=== PATIENT | male | born 1950 | race Caucasian/White ===

== ENCOUNTER → 2019-07-04 | Outpatient (CLI) | payer MEDICARE | END | disposition home or self-care (01) | LOC: RAH 09:13 | PROVIDERS: ATTEND Internal Medicine Gastroenterology | DX: N28.1 Cyst of kidney, acquired (principal); B19.20 Unspecified viral hepatitis C without hepatic coma | CPT/HCPCS: 76700 ==

== ENCOUNTER 2021-10-27 00:46 | Inpatient (IN) | payer OTHER, MEDICARE ==
[~2021-10-27] VITALS: Ht 165.1 cm; Wt 45.6 kg
[2021-10-27] MEDS ORDERED: METO-391 PO (01:04)
[2021-10-27] MEDS ORDERED: AMLO-258 PO (01:04)
[2021-10-27 01:27] LABS: ABG BASE EXCESS -13.2 mmol/L (-2.0-3.0); ABG HCO3 11.7 mmol/L (21.0-28.0); ABG OXYGEN SATURATION 97.2 % (95.0-99.0); ABG PCO2 26 mmHg (35-48)
[2021-10-27 01:29] LABS: BASOPHILS % (AUTO) 0.5 % (0.0-5.0); EOSINOPHILS % (AUTO) 1.9 % (0.0-8.0); HEMATOCRIT 24.9 % (42-54); LYMPHOCYTES % (AUTO) 35.8 % (21.0-51.0); MEAN CORPUSCULAR HEMOGLOBIN 30.7 pg (27.0-33.0); MEAN CORPUSCULAR HGB CONC 31.7 g/dL (32.0-36.0); MEAN CORPUSCULAR VOLUME 96.9 fL (79-99); MONOCYTES % (AUTO) 7.7 % (3.0-13.0); NEUTROPHILS % (AUTO) 53.9 % (40.0-77.0); PLATELET COUNT (AUTO) 163 K/uL (130-400); RED BLOOD CELL COUNT(AUTO) 2.57 MIL/uL (4.50-6.20); RED CELL DISTRIBUTION WIDTH 13.6 % (11.0-15.5); WHITE BLOOD COUNT (AUTO) 5.9 K/uL (4.8-10.8)
[2021-10-27 01:43] LABS: ALBUMIN 3.6 g/dL (3.5-5.0); BILIRUBIN,TOTAL 0.2 mg/dL (0.2-1.0); CREATININE 6.4 mg/dL (0.5-1.5); TOTAL PROTEIN, SERUM 8.2 g/dL (6.0-8.3)
[2021-10-27 01:54] LABS: POTASSIUM 6.2 mmol/L (3.5-5.1)
[2021-10-27] MEDS ORDERED: KAYEXALATE 15GM/60ML PO ONE (03:00)
[2021-10-27] MEDS ORDERED: DEXTROSE 50%-WATER 25 GM/50 ML VIAL IV ONE (03:00)
[2021-10-27] MEDS ORDERED: INSULIN HUMULIN R 100 UNIT/ML 3ML IV ONE (03:00)
[2021-10-27] MEDS ORDERED: CALCIUM GLUC 1GM/10ML VIAL IVPB ONE (03:00)
[2021-10-27] MEDS ORDERED: 0.9%NACL 1000ML 1,000 ML IV ONE (03:00)
[2021-10-27] MEDS ORDERED: KAYEXALATE 15GM/60ML ONE (03:02)
[2021-10-27] MEDS ORDERED: DEXTROSE 50%-WATER 50 ML DISP.SYRIN IV ONE (03:03)
[2021-10-27] MEDS ORDERED: CALCIUM GLUC 1GM/10ML VIAL ONE (03:03)
[2021-10-27] MEDS ORDERED: INSULIN HUMULIN R 100 UNIT/ML 3ML ONE (03:04)
[2021-10-27] MEDS ORDERED: CALCIUM GLUC 1GM 1 GM in 0.9%NACL 100ML 100 ML IV ONE (03:30)
[2021-10-27] MEDS ORDERED: ALBUTEROL 0.083% 2.5 MG/3 ML INH IH ONE (03:30)
[2021-10-27] MEDS ORDERED: NITROGLYCERIN 0.4 MG SL TAB SL PRN (03:30)
[2021-10-27] MEDS ORDERED: HYDROCODONE/ACETAMINOPHEN 5/325 MG TAB PO PRN (03:30)
[2021-10-27] MEDS ORDERED: SODIUM BICARB 8.4% 50ML SYRINGE IVP STA (03:53)
[2021-10-27 03:56] LABS: APPEARANCE,URINE Clear (CLEAR); BILIRUBIN,URINE Negative (NEGATIVE); COLOR,URINE Yellow (YELLOW); GLUCOSE, URINE (UA) Negative (NEGATIVE); KETONES,URINE Negative (NEGATIVE); LEUKOCYTE ESTERASE ,URINE Negative (NEGATIVE); NITRATE,URINE Negative (NEGATIVE); OCCULT BLOOD,URINE Trace (NEGATIVE); PH,URINE 5.5 (5.0-8.0); PROTEIN,URINE 300 mg/dL (NEGATIVE); UROBILINOGEN,URINE 0.2 mg/dL (0.2-1.0)
[2021-10-27] MEDS ORDERED: DEXTROSE 50%-WATER 50 ML DISP.SYRIN IV PRN (04:00)
[2021-10-27] MEDS ORDERED: GLUCAGON 1MG KIT 1 MG ML IM PRN (04:00)
[2021-10-27 04:04] LABS: AMPHET/METH SCREEN,URINE NEGATIVE (NEGATIVE); BARBITURATE SCREEN, URINE NEGATIVE (NEGATIVE); BENZODIAZEPINES SCREEN,URINE NEGATIVE (NEGATIVE); CANNABINOID SCREEN,URINE NEGATIVE (NEGATIVE); COCAINE SCREEN,URINE POSITIVE (NEGATIVE); OPIATE SCREEN,URINE NEGATIVE (NEGATIVE); PHENCYCLIDINE SCREEN,URINE NEGATIVE (NEGATIVE)
[2021-10-27 04:11] LABS: BACTERIA,URINE Few /HPF (None Seen); RBC,URINE 0-1 /HPF (0-1); WBC,URINE 0-1 /HPF (0-1)
[2021-10-27] MEDS: SOLU-MEDROL 40MG VIAL IVP SCH ×2 (05:33→10:07)
[2021-10-27] MEDS ORDERED: SODIUM BICARB 50MEQ 50ML VIAL 50 ML ONE (05:34)
[2021-10-27] MEDS: INSULIN HUMULIN R 100 UNIT/ML 3ML SQ SCH ×4 (07:30→21:00)
[2021-10-27] MEDS ORDERED: SODIUM BICARB 50MEQ 50ML VIAL IVPB SCH (09:00)
[2021-10-27] MEDS ORDERED: METOPROLOL SUCCINATE 50 MG TAB.SR.24H PO SCH (09:00)
[2021-10-27] MEDS ORDERED: ENOXAPARIN SODIUM 30 MG/0.3 ML SQ SCH (09:00)
[2021-10-27] MEDS: FAMOTIDINE 20MG VIAL IV SCH (10:00)
[2021-10-27 10:46] LABS: HEMATOCRIT 25.9 % (42-54); MEAN CORPUSCULAR HEMOGLOBIN 30.2 pg (27.0-33.0); MEAN CORPUSCULAR VOLUME 94.2 fL (79-99); RED BLOOD CELL COUNT(AUTO) 2.75 MIL/uL (4.50-6.20); RED CELL DISTRIBUTION WIDTH 13.5 % (11.0-15.5); WHITE BLOOD COUNT (AUTO) 5.9 K/uL (4.8-10.8)
[2021-10-27 10:58] LABS: HEMOGLOBIN A1C 5.1 % (4.0-6.0)
[2021-10-27 11:18] LABS: ALBUMIN 3.4 g/dL (3.5-5.0); BILIRUBIN,TOTAL 0.2 mg/dL (0.2-1.0); CREATININE 6.3 mg/dL (0.5-1.5); POTASSIUM 5.2 mmol/L (3.5-5.1); THYROID STIMULATING HORMONE 4.06 uIU/mL (0.36-3.74); TOTAL PROTEIN, SERUM 7.9 g/dL (6.0-8.3)
[2021-10-27 13:22] LABS: APPEARANCE,URINE CLEAR (CLEAR); BILIRUBIN,URINE NEGATIVE (NEGATIVE); COLOR,URINE YELLOW (YELLOW); GLUCOSE, URINE (UA) NEGATIVE (NEGATIVE); KETONES,URINE NEGATIVE (NEGATIVE); LEUKOCYTE ESTERASE ,URINE NEGATIVE (NEGATIVE); NITRATE,URINE NEGATIVE (NEGATIVE); OCCULT BLOOD,URINE TRACE-LYSED (NEGATIVE); PH,URINE 5.5 (5.0-8.0); PROTEIN,URINE >=300 mg/dL (NEGATIVE); UROBILINOGEN,URINE 0.2 mg/dL (0.2-1.0)
[2021-10-27 13:30] LABS: CHLORIDE,URINE RANDOM 58 mmol/L (110-250); POTASSIUM,URINE RANDOM 57 mmol/L (25-125); SODIUM,URINE RANDOM 23 mmol/l (40-220)
[2021-10-27 13:35] LABS: BACTERIA,URINE Rare /HPF (None Seen); RBC,URINE 0-1 /HPF (0-1); SQUAMOUS EPITHELIAL CELL,UR Rare /HPF (0-2); WBC,URINE 0-1 /HPF (0-1)
[2021-10-27] MEDS: IPRATROPIUM/ALBUTEROL SULFATE 3 ML SOLUTION IH SCH ×3 (13:50→23:28)
[2021-10-27 14:36] VITALS: BP 169/87
[2021-10-27] MEDS ORDERED: AMLODIPINE-BENAZEPRIL 5-10 MG PO SCH (15:00)
[2021-10-27] MEDS: CEFTRIAXONE 1G VIAL IVP SCH (15:14)
[2021-10-27] MEDS: 0.9% NACL 250ML IVPB SCH (15:15)
[2021-10-27] MEDS: AZITHROMYCIN 500MG+NS 250ML IV SCH (15:15)
[2021-10-27 16:00] VITALS: BP 153/88
[2021-10-27 16:59] LABS: CREATININE 6.4 mg/dL (0.5-1.5); POTASSIUM 4.7 mmol/L (3.5-5.1)
[2021-10-27 20:00] VITALS: BP 170/80
[2021-10-27 21:00] VITALS: BP 153/78
[2021-10-27] MEDS: HYDRALAZINE HCL 10 MG TABLET PO PRN (21:14)
[2021-10-27] MEDS: PHARMACY COMMUNICATION MISC SCH (22:00)
[2021-10-27] MEDS ORDERED: KAYEXALATE 15GM/60ML PO PRN (22:00)
[2021-10-28] VITALS (10 sets, daily range): BP systolic 80–164; BP diastolic 28–77
[2021-10-28] MEDS: PHARMACY COMMUNICATION MISC SCH (02:00)
[2021-10-28 04:00] LABS: MEAN CORPUSCULAR HEMOGLOBIN 29.4 pg (27.0-33.0); MEAN CORPUSCULAR HGB CONC 31.8 g/dL (32.0-36.0); MEAN CORPUSCULAR VOLUME 92.4 fL (79-99); RED BLOOD CELL COUNT(AUTO) 2.11 MIL/uL (4.50-6.20); RED CELL DISTRIBUTION WIDTH 13.3 % (11.0-15.5); WHITE BLOOD COUNT (AUTO) 7.5 K/uL (4.8-10.8)
[2021-10-28 04:19] LABS: HEMATOCRIT 19.5 % (42-54)
[2021-10-28 04:37] LABS: CREATININE 6.6 mg/dL (0.5-1.5); POTASSIUM 4.5 mmol/L (3.5-5.1)
[2021-10-28] MEDS: IPRATROPIUM/ALBUTEROL SULFATE 3 ML SOLUTION IH SCH ×4 (06:21→23:07)
[2021-10-28] MEDS: INSULIN HUMULIN R 100 UNIT/ML 3ML SQ SCH ×2 (07:04→21:00)
[2021-10-28 08:14] LABS: HEMATOCRIT 19.5 % (42-54)
[2021-10-28] MEDS ORDERED: METOPROLOL SUCCINATE 50 MG TAB.SR.24H PO SCH (09:00)
[2021-10-28 09:13] LABS: INR 1.05 (0.85-1.15); PROTHROMBIN TIME 11.4 SEC (9.6-11.6)
[2021-10-28 09:14] LABS: PARTIAL THROMBOPLASTIN TIME 28.7 SEC (26.3-35.5)
[2021-10-28] MEDS: AMLODIPINE 5 MG TAB PO SCH (09:46)
[2021-10-28] MEDS: FAMOTIDINE 20MG VIAL IV SCH (09:46)
[2021-10-28] MEDS: Vitamin B Complex/Vit C/Folic Acid PO SCH (09:46)
[2021-10-28 09:56] LABS: % IRON SATURATION 40.3 % (30-44)
[2021-10-28] MEDS ORDERED: LINEZOLID 600 MG/ISO-OSM 300 ML IV SCH (13:00)
[2021-10-28] MEDS ORDERED: RENAL DOSE IV PRN (13:00)
[2021-10-28] MEDS ORDERED: SODIUM BICARBONATE 650 MG TAB PO SCH (14:00)
[2021-10-28] MEDS: SODIUM BICARBONATE 650 MG TAB PO SCH (21:09)
[2021-10-28] MEDS: CEFTRIAXONE 1G VIAL IVP SCH (21:09)
[2021-10-28] MEDS: 0.9% NACL 250ML IVPB SCH (21:56)
[2021-10-28] MEDS: AZITHROMYCIN 500MG+NS 250ML IV SCH (21:56)
[2021-10-28] MEDS: LINEZOLID 600 MG/ISO-OSM 300 ML IV SCH (22:01)
[2021-10-29] VITALS (7 sets, daily range): BP systolic 127–178; BP diastolic 63–86
[2021-10-29] MEDS ORDERED: FUROSEMIDE 40MG VIAL IV ONE (04:30)
[2021-10-29] MEDS: IPRATROPIUM/ALBUTEROL SULFATE 3 ML SOLUTION IH SCH ×3 (04:48→18:00)
[2021-10-29] MEDS: LEVOTHYROXINE 50 MCG TABLET PO SCH (05:35)
[2021-10-29] MEDS: INSULIN HUMULIN R 100 UNIT/ML 3ML SQ SCH ×4 (06:12→21:00)
[2021-10-29] MEDS: SODIUM BICARBONATE 650 MG TAB PO SCH ×2 (09:00→21:12)
[2021-10-29] MEDS: LINEZOLID 600 MG/ISO-OSM 300 ML IV SCH ×2 (09:00→22:02)
[2021-10-29] MEDS: Vitamin B Complex/Vit C/Folic Acid PO SCH (11:28)
[2021-10-29] MEDS: FAMOTIDINE 20MG VIAL IV SCH (11:28)
[2021-10-29] MEDS: AMLODIPINE 5 MG TAB PO SCH (11:29)
[2021-10-29 15:09] LABS: BASOPHILS % (AUTO) 0.3 % (0.0-5.0); EOSINOPHILS % (AUTO) 0.2 % (0.0-8.0); HEMATOCRIT 26.2 % (42-54); LYMPHOCYTES % (AUTO) 10.6 % (21.0-51.0); MEAN CORPUSCULAR HEMOGLOBIN 29.7 pg (27.0-33.0); MEAN CORPUSCULAR HGB CONC 32.1 g/dL (32.0-36.0); MEAN CORPUSCULAR VOLUME 92.6 fL (79-99); NEUTROPHILS % (AUTO) 79.2 % (40.0-77.0); PLATELET COUNT (AUTO) 135 K/uL (130-400); RED BLOOD CELL COUNT(AUTO) 2.83 MIL/uL (4.50-6.20); RED CELL DISTRIBUTION WIDTH 15.2 % (11.0-15.5); WHITE BLOOD COUNT (AUTO) 10.3 K/uL (4.8-10.8)
[2021-10-29 15:24] LABS: CREATININE 6.8 mg/dL (0.5-1.5); POTASSIUM 4.2 mmol/L (3.5-5.1)
[2021-10-29] MEDS: AZITHROMYCIN 500MG+NS 250ML IV SCH (21:11)
[2021-10-29] MEDS: CEFTRIAXONE 1G VIAL IVP SCH (21:11)
[2021-10-29] MEDS: 0.9% NACL 250ML IVPB SCH (21:12)
[2021-10-30] VITALS (7 sets, daily range): BP systolic 136–178; BP diastolic 68–95
[2021-10-30] MEDS: IPRATROPIUM/ALBUTEROL SULFATE 3 ML SOLUTION IH SCH ×4 (00:44→18:00)
[2021-10-30] MEDS: HYDRALAZINE HCL 10 MG TABLET PO PRN ×2 (01:23→20:54)
[2021-10-30 04:03] LABS: HEMATOCRIT 23.9 % (42-54); MEAN CORPUSCULAR HEMOGLOBIN 30.7 pg (27.0-33.0); MEAN CORPUSCULAR HGB CONC 33.5 g/dL (32.0-36.0); MEAN CORPUSCULAR VOLUME 91.6 fL (79-99); RED BLOOD CELL COUNT(AUTO) 2.61 MIL/uL (4.50-6.20); RED CELL DISTRIBUTION WIDTH 14.8 % (11.0-15.5); WHITE BLOOD COUNT (AUTO) 10.5 K/uL (4.8-10.8)
[2021-10-30 04:18] LABS: ALBUMIN 2.7 g/dL (3.5-5.0); BILIRUBIN,TOTAL 0.2 mg/dL (0.2-1.0); CREATININE 6.5 mg/dL (0.5-1.5); MAGNESIUM 1.2 mg/dL (1.80-2.40); PHOSPHORUS 4.8 mg/dL (2.5-4.9); POTASSIUM 3.6 mmol/L (3.5-5.1); TOTAL PROTEIN, SERUM 6.6 g/dL (6.0-8.3)
[2021-10-30] MEDS: LEVOTHYROXINE 50 MCG TABLET PO SCH (05:55)
[2021-10-30] MEDS: INSULIN HUMULIN R 100 UNIT/ML 3ML SQ SCH ×4 (05:55→20:47)
[2021-10-30] MEDS: Vitamin B Complex/Vit C/Folic Acid PO SCH (09:52)
[2021-10-30] MEDS: AMLODIPINE 5 MG TAB PO SCH (09:52)
[2021-10-30] MEDS: SODIUM BICARBONATE 650 MG TAB PO SCH ×2 (09:52→20:47)
[2021-10-30] MEDS: LINEZOLID 600 MG/ISO-OSM 300 ML IV SCH (09:52)
[2021-10-30] MEDS: FAMOTIDINE 20MG VIAL IV SCH (09:53)
[2021-10-30] MEDS ORDERED: CEFUROXIME AXETIL 250 MG TABLET PO SCH (14:30)
[2021-10-30] MEDS: MAGNESIUM 2GM PREMIX 50ML 50 ML IV PRN (20:54)
[2021-10-30] MEDS: GUAIFENESIN-DM 200/20 MG 10 ML PO PRN (22:48)
[2021-10-30] MEDS: ACETAMINOPHEN 325 MG TAB PO PRN (22:49)
[2021-10-30] MEDS: ONDANSETRON 4MG INJ IV PRN (23:30)
[2021-10-30] MEDS: MAG/ALUM/SIMETH 30 ML UDCUP PO PRN (23:30)
[2021-10-31 04:00] VITALS: BP 172/91
[2021-10-31] MEDS: LEVOTHYROXINE 50 MCG TABLET PO SCH (05:10)
[2021-10-31] MEDS: HYDRALAZINE HCL 10 MG TABLET PO PRN (05:10)
[2021-10-31 05:24] LABS: HEMATOCRIT 24.2 % (42-54); MEAN CORPUSCULAR HEMOGLOBIN 30.5 pg (27.0-33.0); MEAN CORPUSCULAR HGB CONC 33.9 g/dL (32.0-36.0); RED BLOOD CELL COUNT(AUTO) 2.69 MIL/uL (4.50-6.20); RED CELL DISTRIBUTION WIDTH 14.2 % (11.0-15.5); WHITE BLOOD COUNT (AUTO) 8.8 K/uL (4.8-10.8)
[2021-10-31 05:40] LABS: CREATININE 6.6 mg/dL (0.5-1.5); MAGNESIUM 1.8 mg/dL (1.80-2.40); PHOSPHORUS 5.4 mg/dL (2.5-4.9); POTASSIUM 4.6 mmol/L (3.5-5.1)
[2021-10-31] MEDS: IPRATROPIUM/ALBUTEROL SULFATE 3 ML SOLUTION IH SCH ×3 (06:00→11:44)
[2021-10-31 06:12] VITALS: BP 189/87
[2021-10-31] MEDS: INSULIN HUMULIN R 100 UNIT/ML 3ML SQ SCH ×4 (06:24→21:00)
[2021-10-31] MEDS: MAGNESIUM 2GM PREMIX 50ML 50 ML IV PRN (06:25)
[2021-10-31 08:31] VITALS: BP 166/81
[2021-10-31] MEDS: Vitamin B Complex/Vit C/Folic Acid PO SCH (09:44)
[2021-10-31] MEDS: SODIUM BICARBONATE 650 MG TAB PO SCH ×2 (09:45→19:51)
[2021-10-31] MEDS: AMLODIPINE 5 MG TAB PO SCH (09:45)
[2021-10-31] MEDS: CEFUROXIME AXETIL 250 MG TABLET PO SCH ×2 (09:45→19:52)
[2021-10-31] MEDS: FAMOTIDINE 20MG VIAL IV SCH (09:45)
[2021-10-31 12:01] VITALS: BP 159/81
[2021-10-31 16:00] VITALS: BP 159/74
[2021-10-31] MEDS: ACETAMINOPHEN 325 MG TAB PO PRN (17:04)
[2021-10-31 20:00] VITALS: BP 160/75
[2021-11-01] VITALS: BP 170/89
[2021-11-01 04:00] VITALS: BP 122/83
[2021-11-01 04:06] LABS: HEMATOCRIT 25.8 % (42-54); MEAN CORPUSCULAR HEMOGLOBIN 29.6 pg (27.0-33.0); MEAN CORPUSCULAR HGB CONC 32.2 g/dL (32.0-36.0); MEAN CORPUSCULAR VOLUME 92.1 fL (79-99); RED BLOOD CELL COUNT(AUTO) 2.8 MIL/uL (4.50-6.20); RED CELL DISTRIBUTION WIDTH 13.5 % (11.0-15.5); WHITE BLOOD COUNT (AUTO) 6.6 K/uL (4.8-10.8)
[2021-11-01 04:10] LABS: POTASSIUM 4.4 mmol/L (3.5-5.1)
[2021-11-01] MEDS: LEVOTHYROXINE 50 MCG TABLET PO SCH (06:05)
[2021-11-01] MEDS: INSULIN HUMULIN R 100 UNIT/ML 3ML SQ SCH ×4 (06:06→21:00)
[2021-11-01 08:00] VITALS: BP 183/86
[2021-11-01] MEDS: AMLODIPINE 5 MG TAB PO SCH (08:17)
[2021-11-01] MEDS: HYDRALAZINE HCL 10 MG TABLET PO PRN (08:17)
[2021-11-01] MEDS: Vitamin B Complex/Vit C/Folic Acid PO SCH (08:17)
[2021-11-01] MEDS: CEFUROXIME AXETIL 250 MG TABLET PO SCH (08:17)
[2021-11-01] MEDS: FAMOTIDINE 20MG VIAL IV SCH (08:18)
[2021-11-01] MEDS: SODIUM BICARBONATE 650 MG TAB PO SCH ×2 (08:18→20:10)
[2021-11-01] MEDS: ACETAMINOPHEN 325 MG TAB PO PRN (08:20)
[2021-11-01 12:00] VITALS: BP 171/90
[2021-11-01 16:00] VITALS: BP 176/87
[2021-11-01] MEDS ORDERED: LEVOFLOXACIN 250 MG/D5W 50ML 50 ML IVPB SCH (16:00)
[2021-11-01] MEDS ORDERED: ZOSYN 3.375GM +NS 50ML IV SCH (17:00)
[2021-11-01] MEDS: IPRATROPIUM/ALBUTEROL SULFATE 3 ML SOLUTION IH PRN (19:45)
[2021-11-01 20:00] VITALS: BP 152/74
[2021-11-01] MEDS: LEVOFLOXACIN 250 MG/D5W 50ML 50 ML IVPB SCH (20:09)
[2021-11-01] MEDS: ZOSYN 3.375GM +NS 50ML IV SCH (20:09)
[2021-11-01] MEDS ORDERED: SODIUM CHLORIDE 3% FOR INHALATION 4 ML/AMP VIAL.NEB IH PRN (21:30)
[2021-11-02] VITALS (7 sets, daily range): BP systolic 153–170; BP diastolic 76–84
[2021-11-02 03:57] LABS: HEMATOCRIT 23.6 % (42-54); MEAN CORPUSCULAR HEMOGLOBIN 29.1 pg (27.0-33.0); MEAN CORPUSCULAR HGB CONC 31.4 g/dL (32.0-36.0); MEAN CORPUSCULAR VOLUME 92.9 fL (79-99); RED BLOOD CELL COUNT(AUTO) 2.54 MIL/uL (4.50-6.20); RED CELL DISTRIBUTION WIDTH 13.5 % (11.0-15.5); WHITE BLOOD COUNT (AUTO) 6.3 K/uL (4.8-10.8)
[2021-11-02 04:13] LABS: CREATININE 6.8 mg/dL (0.5-1.5); MAGNESIUM 2.5 mg/dL (1.80-2.40); POTASSIUM 4.4 mmol/L (3.5-5.1)
[2021-11-02] MEDS: LEVOTHYROXINE 50 MCG TABLET PO SCH (05:55)
[2021-11-02] MEDS: INSULIN HUMULIN R 100 UNIT/ML 3ML SQ SCH ×4 (05:56→21:00)
[2021-11-02] MEDS: HYDRALAZINE HCL 10 MG TABLET PO PRN (10:40)
[2021-11-02] MEDS: ZOSYN 3.375GM +NS 50ML IV SCH ×2 (10:40→21:10)
[2021-11-02] MEDS: FAMOTIDINE 20MG VIAL IV SCH (10:40)
[2021-11-02] MEDS: SODIUM BICARBONATE 650 MG TAB PO SCH ×2 (10:40→20:27)
[2021-11-02] MEDS: LACTULOSE 20 GM/30 ML UDCUP PO PRN (10:41)
[2021-11-02] MEDS: Vitamin B Complex/Vit C/Folic Acid PO SCH (10:41)
[2021-11-02] MEDS: MAG/ALUM/SIMETH 30 ML UDCUP PO PRN (10:41)
[2021-11-02] MEDS: AMLODIPINE 5 MG TAB PO SCH (10:41)
[2021-11-02] MEDS: EPOETIN ALFA-EPBX (ESRD) 10,000 UNIT/ML VIAL IV SCH (17:40)
[2021-11-02] MEDS ORDERED: ALTEPLASE 2MG VIAL 2 MG/VIAL VIAL IVCATH SCH (18:30)
[2021-11-02] MEDS: LEVOFLOXACIN 250 MG/D5W 50ML 50 ML IVPB SCH (20:27)
[2021-11-03] VITALS (7 sets, daily range): BP systolic 156–190; BP diastolic 79–93
[2021-11-03] MEDS: HYDRALAZINE HCL 10 MG TABLET PO PRN ×3 (01:38→22:16)
[2021-11-03] MEDS: IPRATROPIUM/ALBUTEROL SULFATE 3 ML SOLUTION IH PRN ×2 (01:45→22:29)
[2021-11-03] MEDS: ZOLPIDEM TARTRATE 5 MG TAB PO PRN ×2 (02:57→22:16)
[2021-11-03] MEDS: INSULIN HUMULIN R 100 UNIT/ML 3ML SQ SCH ×4 (06:02→20:11)
[2021-11-03] MEDS: LEVOTHYROXINE 50 MCG TABLET PO SCH (06:02)
[2021-11-03] MEDS: SODIUM BICARBONATE 650 MG TAB PO SCH ×2 (09:36→20:08)
[2021-11-03] MEDS: ZOSYN 3.375GM +NS 50ML IV SCH ×2 (09:36→20:09)
[2021-11-03] MEDS: FAMOTIDINE 20MG VIAL IV SCH (09:36)
[2021-11-03] MEDS: AMLODIPINE 5 MG TAB PO SCH (09:36)
[2021-11-03] MEDS: Vitamin B Complex/Vit C/Folic Acid PO SCH (09:37)
[2021-11-03] MEDS: EPOETIN ALFA-EPBX (ESRD) 10,000 UNIT/ML VIAL IV SCH (09:37)
[2021-11-03] MEDS: LEVOFLOXACIN 250 MG/D5W 50ML 50 ML IVPB SCH (20:08)
[2021-11-03] MEDS: NICOTINE 14 MG/ 24 HR PATCH TD SCH (20:24)
[2021-11-04] VITALS (22 sets, daily range): BP systolic 152–192; BP diastolic 74–101
[2021-11-04] MEDS: ALPRAZOLAM 0.25 MG TABLET PO PRN (01:05)
[2021-11-04 03:57] LABS: BASOPHILS % (AUTO) 0.5 % (0.0-5.0); EOSINOPHILS % (AUTO) 1.6 % (0.0-8.0); HEMATOCRIT 24.6 % (42-54); LYMPHOCYTES % (AUTO) 15.9 % (21.0-51.0); MEAN CORPUSCULAR HEMOGLOBIN 29.5 pg (27.0-33.0); MEAN CORPUSCULAR HGB CONC 32.5 g/dL (32.0-36.0); MEAN CORPUSCULAR VOLUME 90.8 fL (79-99); NEUTROPHILS % (AUTO) 65.9 % (40.0-77.0); PLATELET COUNT (AUTO) 129 K/uL (130-400); RED BLOOD CELL COUNT(AUTO) 2.71 MIL/uL (4.50-6.20); RED CELL DISTRIBUTION WIDTH 13.3 % (11.0-15.5); WHITE BLOOD COUNT (AUTO) 5.7 K/uL (4.8-10.8)
[2021-11-04 04:13] LABS: INR 1.07 (0.85-1.15); PROTHROMBIN TIME 11.6 SEC (9.6-11.6)
[2021-11-04 04:17] LABS: CREATININE 7.4 mg/dL (0.5-1.5); PHOSPHORUS 5.3 mg/dL (2.5-4.9); POTASSIUM 4.4 mmol/L (3.5-5.1)
[2021-11-04] MEDS: LEVOTHYROXINE 50 MCG TABLET PO SCH (05:32)
[2021-11-04] MEDS: INSULIN HUMULIN R 100 UNIT/ML 3ML SQ SCH ×4 (06:32→20:52)
[2021-11-04] MEDS: AMLODIPINE 5 MG TAB PO SCH (09:00)
[2021-11-04] MEDS ORDERED: NICOTINE 14 MG/ 24 HR PATCH TD SCH (09:00)
[2021-11-04] MEDS: Vitamin B Complex/Vit C/Folic Acid PO SCH (09:00)
[2021-11-04] MEDS: SODIUM BICARBONATE 650 MG TAB PO SCH ×2 (09:00→23:19)
[2021-11-04] MEDS: ZOSYN 3.375GM +NS 50ML IV SCH ×2 (09:28→23:19)
[2021-11-04] MEDS: EPOETIN ALFA-EPBX (ESRD) 10,000 UNIT/ML VIAL IV SCH (09:28)
[2021-11-04] MEDS: NICOTINE 14 MG/ 24 HR PATCH TD SCH (09:29)
[2021-11-04] MEDS: FAMOTIDINE 20MG VIAL IV SCH (09:29)
[2021-11-04] MEDS ORDERED: HEPARIN 1,000 UNIT VIAL ONE (12:13)
[2021-11-04] MEDS ORDERED: LIDOCAINE HCL 1% MDV 50ML VIAL ONE (12:14)
[2021-11-04] MEDS: HYDRALAZINE HCL 10 MG TABLET PO PRN ×2 (14:37→22:00)
[2021-11-04] MEDS: ACETAMINOPHEN 325 MG TAB PO PRN ×2 (14:37→23:25)
[2021-11-04] MEDS ORDERED: HYDROMORPHONE 0.5 MG SYG (0.5MG/0.5ML) IVP SCH (15:29)
[2021-11-04] MEDS ORDERED: HYDROMORPHONE 0.5 MG SYG (0.5MG/0.5ML) ONE (15:38)
[2021-11-04 18:28] LABS: HEPATITIS B SURFACE ANTIGEN Non-Reactive (Negative)
[2021-11-04 21:58] LABS: HEMATOCRIT 24.9 % (42-54)
[2021-11-04 22:10] LABS: HEMOGLOBIN A1C 5.4 % (4.0-6.0)
[2021-11-04 22:17] LABS: ALBUMIN 2.5 g/dL (3.5-5.0); CREATININE 5.8 mg/dL (0.5-1.5)
[2021-11-04] MEDS: LEVOFLOXACIN 250 MG/D5W 50ML 50 ML IVPB SCH (23:19)
[2021-11-04] MEDS: ZOLPIDEM TARTRATE 5 MG TAB PO PRN (23:24)
[2021-11-05] VITALS (18 sets, daily range): BP systolic 139–174; BP diastolic 61–90
[2021-11-05 05:10] LABS: HEMATOCRIT 25.6 % (42-54); MEAN CORPUSCULAR HEMOGLOBIN 29.1 pg (27.0-33.0); MEAN CORPUSCULAR HGB CONC 31.3 g/dL (32.0-36.0); MEAN CORPUSCULAR VOLUME 93.1 fL (79-99); PLATELET COUNT (AUTO) 136 K/uL (130-400); RED BLOOD CELL COUNT(AUTO) 2.75 MIL/uL (4.50-6.20); RED CELL DISTRIBUTION WIDTH 13.1 % (11.0-15.5)
[2021-11-05 05:17] LABS: CREATININE 5.2 mg/dL (0.5-1.5); MAGNESIUM 2.3 mg/dL (1.80-2.40); PHOSPHORUS 4.4 mg/dL (2.5-4.9); POTASSIUM 4.1 mmol/L (3.5-5.1)
[2021-11-05] MEDS: ALPRAZOLAM 0.25 MG TABLET PO PRN (05:34)
[2021-11-05] MEDS: ACETAMINOPHEN 325 MG TAB PO PRN ×3 (05:35→20:21)
[2021-11-05] MEDS: LEVOTHYROXINE 50 MCG TABLET PO SCH (05:37)
[2021-11-05 05:53] LABS: LYMPHOCYTES % (MANUAL) 16 % (22-44); MAN.DIFF COMMENT-IMPRESSION MANUAL DIFFERENTIAL; MONOCYTES % (MANUAL) 12 % (2-9); SEGMENTED NEUTROPHILS % 72 % (40-70)
[2021-11-05 05:54] LABS: PLATELET MORPHOLOGY COMMENT ADEQUATE
[2021-11-05] MEDS: INSULIN HUMULIN R 100 UNIT/ML 3ML SQ SCH ×4 (07:30→21:00)
[2021-11-05] MEDS: Vitamin B Complex/Vit C/Folic Acid PO SCH (09:11)
[2021-11-05] MEDS: SODIUM BICARBONATE 650 MG TAB PO SCH ×2 (09:11→20:22)
[2021-11-05] MEDS: AMLODIPINE 5 MG TAB PO SCH (09:11)
[2021-11-05] MEDS: EPOETIN ALFA-EPBX (ESRD) 10,000 UNIT/ML VIAL IV SCH (09:12)
[2021-11-05] MEDS: FAMOTIDINE 20MG VIAL IV SCH (09:12)
[2021-11-05] MEDS: NICOTINE 14 MG/ 24 HR PATCH TD SCH (09:12)
[2021-11-05] MEDS: ZOSYN 3.375GM +NS 50ML IV SCH ×2 (09:19→20:25)
[2021-11-05] MEDS ORDERED: COMPOUND IV MISC 1 EACH IVSOLN MISC PRN (09:30)
[2021-11-05] MEDS: IRON SUCROSE COMPLEX 100 MG in 0.9%NACL 50ML 50 ML IV SCH (11:55)
[2021-11-05] MEDS: TRAMADOL HCL 50 MG TABLET PO PRN (17:06)
[2021-11-05] MEDS: ONDANSETRON 4MG INJ IV PRN (20:05)
[2021-11-05] MEDS: ZOLPIDEM TARTRATE 5 MG TAB PO PRN (20:21)
[2021-11-05] MEDS: LEVOFLOXACIN 250 MG/D5W 50ML 50 ML IVPB SCH (20:25)
[2021-11-06 00:40] VITALS: BP 153/83
[2021-11-06 04:15] LABS: MEAN CORPUSCULAR HEMOGLOBIN 29.3 pg (27.0-33.0); MEAN CORPUSCULAR HGB CONC 31.5 g/dL (32.0-36.0); MEAN CORPUSCULAR VOLUME 92.9 fL (79-99); PLATELET COUNT (AUTO) 146 K/uL (130-400); RED CELL DISTRIBUTION WIDTH 13.2 % (11.0-15.5); WHITE BLOOD COUNT (AUTO) 5.1 K/uL (4.8-10.8)
[2021-11-06 04:42] LABS: ALBUMIN 2.6 g/dL (3.5-5.0); BILIRUBIN,TOTAL 0.3 mg/dL (0.2-1.0); CREATININE 4.2 mg/dL (0.5-1.5); POTASSIUM 4.4 mmol/L (3.5-5.1); TOTAL PROTEIN, SERUM 7.2 g/dL (6.0-8.3)
[2021-11-06 04:44] VITALS: BP 160/85
[2021-11-06 05:32] LABS: EOSINOPHILS % (MANUAL) 4 % (1-6); LYMPHOCYTES % (MANUAL) 8 % (22-44); MONOCYTES % (MANUAL) 8 % (2-9); SEGMENTED NEUTROPHILS % 80 % (40-70)
[2021-11-06 05:33] LABS: MAN.DIFF COMMENT-IMPRESSION MANUAL DIFFERENTIAL; PLATELET MORPHOLOGY COMMENT ADEQUATE
[2021-11-06] MEDS: LEVOTHYROXINE 50 MCG TABLET PO SCH (06:10)
[2021-11-06] MEDS: ACETAMINOPHEN 325 MG TAB PO PRN (06:25)
[2021-11-06] MEDS: HYDRALAZINE HCL 10 MG TABLET PO PRN (06:27)
[2021-11-06] MEDS: INSULIN HUMULIN R 100 UNIT/ML 3ML SQ SCH ×4 (07:30→20:18)
[2021-11-06 07:54] VITALS: BP 156/83
[2021-11-06] MEDS: FAMOTIDINE 20MG VIAL IV SCH (10:49)
[2021-11-06] MEDS: Vitamin B Complex/Vit C/Folic Acid PO SCH (10:49)
[2021-11-06] MEDS: SODIUM BICARBONATE 650 MG TAB PO SCH ×2 (10:49→19:54)
[2021-11-06] MEDS: ZOSYN 3.375GM +NS 50ML IV SCH ×2 (10:49→19:54)
[2021-11-06] MEDS: AMLODIPINE 5 MG TAB PO SCH (10:49)
[2021-11-06] MEDS: NICOTINE 14 MG/ 24 HR PATCH TD SCH (10:50)
[2021-11-06] MEDS: IRON SUCROSE COMPLEX 100 MG in 0.9%NACL 50ML 50 ML IV SCH (10:50)
[2021-11-06] MEDS: EPOETIN ALFA-EPBX (ESRD) 10,000 UNIT/ML VIAL IV SCH (10:50)
[2021-11-06 11:30] VITALS: BP 163/81
[2021-11-06] MEDS: TRAMADOL HCL 50 MG TABLET PO PRN ×2 (12:49→21:40)
[2021-11-06 16:00] VITALS: BP 172/85
[2021-11-06] MEDS: LEVOFLOXACIN 250 MG/D5W 50ML 50 ML IVPB SCH (19:54)
[2021-11-06 20:50] VITALS: BP 167/92
[2021-11-06] MEDS: ZOLPIDEM TARTRATE 5 MG TAB PO PRN (21:40)
[2021-11-07] VITALS (20 sets, daily range): BP systolic 135–186; BP diastolic 70–94
[2021-11-07 04:04] LABS: BASOPHILS % (AUTO) 0.7 % (0.0-5.0); EOSINOPHILS % (AUTO) 3.4 % (0.0-8.0); HEMATOCRIT 26.8 % (42-54); LYMPHOCYTES % (AUTO) 20.3 % (21.0-51.0); MEAN CORPUSCULAR HEMOGLOBIN 30.2 pg (27.0-33.0); MEAN CORPUSCULAR HGB CONC 31.7 g/dL (32.0-36.0); MEAN CORPUSCULAR VOLUME 95.4 fL (79-99); MONOCYTES % (AUTO) 13.4 % (3.0-13.0); NEUTROPHILS % (AUTO) 60.7 % (40.0-77.0); PLATELET COUNT (AUTO) 182 K/uL (130-400); RED BLOOD CELL COUNT(AUTO) 2.81 MIL/uL (4.50-6.20); RED CELL DISTRIBUTION WIDTH 13.2 % (11.0-15.5); WHITE BLOOD COUNT (AUTO) 5.4 K/uL (4.8-10.8)
[2021-11-07 04:30] LABS: CREATININE 5.7 mg/dL (0.5-1.5); POTASSIUM 4.2 mmol/L (3.5-5.1)
[2021-11-07] MEDS: LEVOTHYROXINE 50 MCG TABLET PO SCH (05:13)
[2021-11-07] MEDS: INSULIN HUMULIN R 100 UNIT/ML 3ML SQ SCH ×4 (06:30→21:00)
[2021-11-07] MEDS: EPOETIN ALFA-EPBX (ESRD) 10,000 UNIT/ML VIAL IV SCH ×2 (09:00→15:22)
[2021-11-07] MEDS: Vitamin B Complex/Vit C/Folic Acid PO SCH (09:22)
[2021-11-07] MEDS: AMLODIPINE 5 MG TAB PO SCH (09:22)
[2021-11-07] MEDS: NICOTINE 14 MG/ 24 HR PATCH TD SCH (09:22)
[2021-11-07] MEDS: ZOSYN 3.375GM +NS 50ML IV SCH ×2 (09:22→20:53)
[2021-11-07] MEDS: IRON SUCROSE COMPLEX 100 MG in 0.9%NACL 50ML 50 ML IV SCH (09:23)
[2021-11-07] MEDS: FAMOTIDINE 20MG VIAL IV SCH (09:23)
[2021-11-07] MEDS: SODIUM BICARBONATE 650 MG TAB PO SCH ×2 (09:23→20:53)
[2021-11-07] MEDS: ACETAMINOPHEN 325 MG TAB PO PRN (09:55)
[2021-11-07] MEDS ORDERED: HEPARIN 5,000 UNIT VIAL ONE (12:53)
[2021-11-07] MEDS: HYDRALAZINE HCL 10 MG TABLET PO PRN (20:52)
[2021-11-07] MEDS: ALPRAZOLAM 0.25 MG TABLET PO PRN (20:53)
[2021-11-07] MEDS: LEVOFLOXACIN 250 MG/D5W 50ML 50 ML IVPB SCH (20:53)
[2021-11-07] MEDS: TRAMADOL HCL 50 MG TABLET PO PRN (21:06)
[2021-11-08] VITALS (24 sets, daily range): BP systolic 138–198; BP diastolic 64–89
[2021-11-08 04:28] LABS: BASOPHILS % (AUTO) 0.5 % (0.0-5.0); EOSINOPHILS % (AUTO) 3.2 % (0.0-8.0); HEMATOCRIT 26.6 % (42-54); LYMPHOCYTES % (AUTO) 20.9 % (21.0-51.0); MEAN CORPUSCULAR HEMOGLOBIN 29.3 pg (27.0-33.0); MEAN CORPUSCULAR HGB CONC 31.6 g/dL (32.0-36.0); MEAN CORPUSCULAR VOLUME 92.7 fL (79-99); MONOCYTES % (AUTO) 14.6 % (3.0-13.0); NEUTROPHILS % (AUTO) 59.4 % (40.0-77.0); PLATELET COUNT (AUTO) 174 K/uL (130-400); RED BLOOD CELL COUNT(AUTO) 2.87 MIL/uL (4.50-6.20); RED CELL DISTRIBUTION WIDTH 13.2 % (11.0-15.5); WHITE BLOOD COUNT (AUTO) 5.5 K/uL (4.8-10.8)
[2021-11-08 05:08] LABS: CREATININE 4.6 mg/dL (0.5-1.5); POTASSIUM 4.2 mmol/L (3.5-5.1)
[2021-11-08] MEDS: LEVOTHYROXINE 50 MCG TABLET PO SCH (06:16)
[2021-11-08] MEDS: INSULIN HUMULIN R 100 UNIT/ML 3ML SQ SCH ×4 (06:17→20:43)
[2021-11-08] MEDS: Vitamin B Complex/Vit C/Folic Acid PO SCH (08:51)
[2021-11-08] MEDS: SODIUM BICARBONATE 650 MG TAB PO SCH ×2 (08:51→21:07)
[2021-11-08] MEDS: AMLODIPINE 5 MG TAB PO SCH (08:51)
[2021-11-08] MEDS: ZOSYN 3.375GM +NS 50ML IV SCH ×2 (08:57→21:05)
[2021-11-08] MEDS: IRON SUCROSE COMPLEX 100 MG in 0.9%NACL 50ML 50 ML IV SCH (08:57)
[2021-11-08] MEDS: FAMOTIDINE 20MG VIAL IV SCH (08:58)
[2021-11-08] MEDS: NICOTINE 14 MG/ 24 HR PATCH TD SCH (08:58)
[2021-11-08] MEDS: EPOETIN ALFA-EPBX (ESRD) 10,000 UNIT/ML VIAL IV SCH (08:58)
[2021-11-08 09:47] LABS: INR 1.05 (0.85-1.15); PROTHROMBIN TIME 11.4 SEC (9.6-11.6)
[2021-11-08 09:49] LABS: PARTIAL THROMBOPLASTIN TIME 30.6 SEC (26.3-35.5)
[2021-11-08] MEDS ORDERED: PROPOFOL 10 MG/ML 20ML VIAL IV ONE (16:01)
[2021-11-08] MEDS ORDERED: ROCURONIUM 10MG/1ML SYR 10 MG/ML ML ONE (16:01)
[2021-11-08] MEDS ORDERED: LIDOCAINE PF 100MG/5ML (2%) SYRINGE 5ML ONE (16:01)
[2021-11-08] MEDS ORDERED: ONDANSETRON 4MG INJ ONE (16:01)
[2021-11-08] MEDS ORDERED: FENTANYL CITRATE PF 50 MCG/1 ML 2ML VIAL ONE (16:02)
[2021-11-08] MEDS ORDERED: NOREPINEPHRINE BITARTRATE 1 MG/1 ML ML IV ONE (16:06)
[2021-11-08] MEDS ORDERED: CEFAZOLIN SODIUM 1 GM VIAL ONE (16:36)
[2021-11-08] MEDS ORDERED: BUPIVACAINE/PF 0.25% 30ML VIAL IJ ONE (16:36)
[2021-11-08] MEDS ORDERED: LIDOCAINE HCL 1% 20 ML VIAL ONE (16:36)
[2021-11-08] MEDS: CEFAZOLIN SODIUM 1 GM VIAL ONE ×2 (17:00→18:34)
[2021-11-08] MEDS ORDERED: HEPARIN PF LOCK 500 UNIT/5ML IV SCH (18:30)
[2021-11-08] MEDS ORDERED: GLYCOPYRROLATE 1 MG/5 ML SYRINGE ONE (18:35)
[2021-11-08] MEDS ORDERED: NEOSTIGMINE 5MG/5ML SYR IV ONE (18:35)
[2021-11-08] MEDS ORDERED: 0.9%NACL 1000ML 1,000 ML IV ONE (19:26)
[2021-11-08] MEDS ORDERED: MORPHINE 2 MG SYG ONE (19:40)
[2021-11-08] MEDS: LEVOFLOXACIN 250 MG/D5W 50ML 50 ML IVPB SCH (21:05)
[2021-11-08] MEDS: TRAMADOL HCL 50 MG TABLET PO PRN (23:39)
[2021-11-09 00:16] VITALS: BP 166/71
[2021-11-09 04:20] VITALS: BP 117/72
[2021-11-09 04:27] LABS: HEMATOCRIT 26.5 % (42-54); MEAN CORPUSCULAR HEMOGLOBIN 29.1 pg (27.0-33.0); MEAN CORPUSCULAR HGB CONC 30.6 g/dL (32.0-36.0); MEAN CORPUSCULAR VOLUME 95.3 fL (79-99); PLATELET COUNT (AUTO) 198 K/uL (130-400); RED BLOOD CELL COUNT(AUTO) 2.78 MIL/uL (4.50-6.20); RED CELL DISTRIBUTION WIDTH 13.5 % (11.0-15.5); WHITE BLOOD COUNT (AUTO) 8.7 K/uL (4.8-10.8)
[2021-11-09 04:37] LABS: CREATININE 6.7 mg/dL (0.5-1.5); POTASSIUM 4.2 mmol/L (3.5-5.1)
[2021-11-09 05:52] LABS: BASOPHILS % (MANUAL) 1 % (0-2); EOSINOPHILS % (MANUAL) 1 % (1-6); LYMPHOCYTES % (MANUAL) 18 % (22-44); MAN.DIFF COMMENT-IMPRESSION MANUAL DIFFERENTIAL; MONOCYTES % (MANUAL) 3 % (2-9); PLATELET MORPHOLOGY COMMENT ADEQUATE; SEGMENTED NEUTROPHILS % 77 % (40-70)
[2021-11-09] MEDS: INSULIN HUMULIN R 100 UNIT/ML 3ML SQ SCH ×4 (06:11→21:00)
[2021-11-09] MEDS: LEVOTHYROXINE 50 MCG TABLET PO SCH (06:45)
[2021-11-09 08:50] VITALS: BP 164/102
[2021-11-09] MEDS: FAMOTIDINE 20MG VIAL IV SCH (08:50)
[2021-11-09] MEDS: IRON SUCROSE COMPLEX 100 MG in 0.9%NACL 50ML 50 ML IV SCH (08:51)
[2021-11-09] MEDS: Vitamin B Complex/Vit C/Folic Acid PO SCH (09:03)
[2021-11-09] MEDS: SODIUM BICARBONATE 650 MG TAB PO SCH ×2 (09:03→20:40)
[2021-11-09] MEDS: AMLODIPINE 5 MG TAB PO SCH (09:03)
[2021-11-09 09:50] VITALS: BP 166/92
[2021-11-09] MEDS: NICOTINE 14 MG/ 24 HR PATCH TD SCH (10:04)
[2021-11-09] MEDS: ZOSYN 3.375GM +NS 50ML IV SCH ×2 (10:04→20:37)
[2021-11-09] MEDS: TRAMADOL HCL 50 MG TABLET PO PRN ×2 (13:58→20:40)
[2021-11-09] MEDS: EPOETIN ALFA-EPBX (ESRD) 10,000 UNIT/ML VIAL IV SCH (14:00)
[2021-11-09] MEDS: IPRATROPIUM/ALBUTEROL SULFATE 3 ML SOLUTION IH PRN ×2 (14:11→18:09)
[2021-11-09] MEDS: GUAIFENESIN-DM 200/20 MG 10 ML PO PRN ×2 (14:43→19:43)
[2021-11-09] MEDS ORDERED: BENZOCAINE/MENTH/CETYLPYRD CL 1 EACH LOZENGE MM PRN (15:00)
[2021-11-09] MEDS ORDERED: BENZOCAINE/MENTH/CETYLPYRD CL 1 EACH LOZENGE MM ONE (15:12)
[2021-11-09 17:30] VITALS: BP 180/90
[2021-11-09] MEDS: HYDRALAZINE HCL 10 MG TABLET PO PRN (18:40)
[2021-11-09] MEDS: ACETAMINOPHEN 325 MG TAB PO PRN (18:41)
[2021-11-09 20:24] VITALS: BP 157/77
[2021-11-09] MEDS: LEVOFLOXACIN 250 MG/D5W 50ML 50 ML IVPB SCH (20:37)
[2021-11-09] MEDS: ALPRAZOLAM 0.25 MG TABLET PO PRN (20:39)
[2021-11-09] MEDS ORDERED: ZOLPIDEM TARTRATE 5 MG TAB ONE ×2 (23:20→23:21)
[2021-11-10] VITALS (20 sets, daily range): BP systolic 130–168; BP diastolic 70–83
[2021-11-10 05:11] LABS: HEMATOCRIT 23.5 % (42-54); MEAN CORPUSCULAR HGB CONC 31.9 g/dL (32.0-36.0); NUCLEATED RED BLOOD CELLS 0.1 % (0.0-0.19); RED BLOOD CELL COUNT(AUTO) 2.5 MIL/uL (4.50-6.20); RED CELL DISTRIBUTION WIDTH 13.3 % (11.0-15.5); WHITE BLOOD COUNT (AUTO) 16.2 K/uL (4.8-10.8)
[2021-11-10 05:30] LABS: POTASSIUM 3.7 mmol/L (3.5-5.1)
[2021-11-10 05:43] LABS: CREATININE 8.3 mg/dL (0.5-1.5)
[2021-11-10] MEDS: LEVOTHYROXINE 50 MCG TABLET PO SCH (05:57)
[2021-11-10] MEDS: INSULIN HUMULIN R 100 UNIT/ML 3ML SQ SCH ×4 (05:59→21:00)
[2021-11-10] MEDS: HYDROMORPHONE 0.5 MG SYG (0.5MG/0.5ML) IVP PRN (07:20)
[2021-11-10] MEDS: AMLODIPINE 5 MG TAB PO SCH (09:00)
[2021-11-10] MEDS ORDERED: HEPARIN 5,000 UNIT VIAL ONE (10:12)
[2021-11-10] MEDS: IRON SUCROSE COMPLEX 100 MG in 0.9%NACL 50ML 50 ML IV SCH (10:40)
[2021-11-10] MEDS: NICOTINE 14 MG/ 24 HR PATCH TD SCH (10:40)
[2021-11-10] MEDS: ZOSYN 3.375GM +NS 50ML IV SCH ×2 (10:40→20:57)
[2021-11-10] MEDS: Vitamin B Complex/Vit C/Folic Acid PO SCH (10:40)
[2021-11-10] MEDS: SODIUM BICARBONATE 650 MG TAB PO SCH ×2 (10:40→20:56)
[2021-11-10] MEDS: LACTULOSE 20 GM/30 ML UDCUP PO PRN (10:40)
[2021-11-10] MEDS: FAMOTIDINE 20MG VIAL IV SCH (10:49)
[2021-11-10] MEDS: HEPARIN 5,000 UNIT VIAL IV SCH (15:00)
[2021-11-10] MEDS: ACETAMINOPHEN 325 MG TAB PO PRN ×2 (15:29→20:57)
[2021-11-10] MEDS: ZOLPIDEM TARTRATE 5 MG TAB PO PRN (20:55)
[2021-11-10] MEDS: LEVOFLOXACIN 250 MG/D5W 50ML 50 ML IVPB SCH (20:57)
[2021-11-10] MEDS: HYDRALAZINE HCL 10 MG TABLET PO PRN (21:11)
[2021-11-11 00:01] VITALS: BP 117/67
[2021-11-11] MEDS: ACETAMINOPHEN 325 MG TAB PO PRN (04:11)
[2021-11-11 04:20] LABS: HEMATOCRIT 25.2 % (42-54); MEAN CORPUSCULAR HGB CONC 31.7 g/dL (32.0-36.0); MEAN CORPUSCULAR VOLUME 94.4 fL (79-99); PLATELET COUNT (AUTO) 219 K/uL (130-400); RED BLOOD CELL COUNT(AUTO) 2.67 MIL/uL (4.50-6.20); RED CELL DISTRIBUTION WIDTH 14.2 % (11.0-15.5); WHITE BLOOD COUNT (AUTO) 14.4 K/uL (4.8-10.8)
[2021-11-11 04:38] LABS: CREATININE 6.1 mg/dL (0.5-1.5); POTASSIUM 4.1 mmol/L (3.5-5.1)
[2021-11-11 04:42] LABS: BAND NEUTROPHILS % (MANUAL) 1 % (0-2); EOSINOPHILS % (MANUAL) 1 % (1-6); LYMPHOCYTES % (MANUAL) 12 % (22-44); MONOCYTES % (MANUAL) 7 % (2-9); SEGMENTED NEUTROPHILS % 79 % (40-70)
[2021-11-11 04:43] LABS: MAN.DIFF COMMENT-IMPRESSION MANUAL DIFFERENTIAL; PLATELET MORPHOLOGY COMMENT ADEQUATE
[2021-11-11 04:56] VITALS: BP 125/69
[2021-11-11] MEDS: HYDROMORPHONE 0.5 MG SYG (0.5MG/0.5ML) IVP PRN ×3 (05:08→19:55)
[2021-11-11] MEDS: INSULIN HUMULIN R 100 UNIT/ML 3ML SQ SCH ×4 (06:12→20:39)
[2021-11-11] MEDS: LEVOTHYROXINE 50 MCG TABLET PO SCH (06:15)
[2021-11-11 07:25] VITALS: BP 161/80
[2021-11-11] MEDS: ZOSYN 3.375GM +NS 50ML IV SCH ×2 (10:02→19:55)
[2021-11-11] MEDS: FAMOTIDINE 20MG VIAL IV SCH (10:02)
[2021-11-11] MEDS: Vitamin B Complex/Vit C/Folic Acid PO SCH (10:02)
[2021-11-11] MEDS: AMLODIPINE 5 MG TAB PO SCH (10:02)
[2021-11-11] MEDS: SODIUM BICARBONATE 650 MG TAB PO SCH ×2 (10:02→19:55)
[2021-11-11 11:35] VITALS: BP 169/82
[2021-11-11] MEDS: HEPARIN 5,000 UNIT VIAL IV SCH (15:00)
[2021-11-11] MEDS: NICOTINE 14 MG/ 24 HR PATCH TD SCH (15:18)
[2021-11-11] MEDS: IRON SUCROSE COMPLEX 100 MG in 0.9%NACL 50ML 50 ML IV SCH (15:18)
[2021-11-11 15:20] VITALS: BP 145/65
[2021-11-11] MEDS: LEVOFLOXACIN 250 MG/D5W 50ML 50 ML IVPB SCH (19:55)
[2021-11-11 20:00] VITALS: BP 161/74
[2021-11-11] MEDS: HYDRALAZINE HCL 10 MG TABLET PO PRN (23:13)
[2021-11-11] MEDS: ZOLPIDEM TARTRATE 5 MG TAB PO PRN (23:13)
[2021-11-12] VITALS (18 sets, daily range): BP systolic 117–196; BP diastolic 63–89
[2021-11-12] MEDS: ALPRAZOLAM 0.25 MG TABLET PO PRN ×2 (02:33→20:56)
[2021-11-12] MEDS: HYDROMORPHONE 0.5 MG SYG (0.5MG/0.5ML) IVP PRN (04:35)
[2021-11-12 04:59] LABS: MEAN CORPUSCULAR HEMOGLOBIN 29.4 pg (27.0-33.0); MEAN CORPUSCULAR HGB CONC 31.3 g/dL (32.0-36.0); MEAN CORPUSCULAR VOLUME 94.1 fL (79-99); PLATELET COUNT (AUTO) 161 K/uL (130-400); RED BLOOD CELL COUNT(AUTO) 2.55 MIL/uL (4.50-6.20); RED CELL DISTRIBUTION WIDTH 14.1 % (11.0-15.5); WHITE BLOOD COUNT (AUTO) 12.5 K/uL (4.8-10.8)
[2021-11-12 05:13] LABS: ALBUMIN 2.3 g/dL (3.5-5.0); BILIRUBIN,TOTAL 0.3 mg/dL (0.2-1.0); MAGNESIUM 1.7 mg/dL (1.80-2.40); PHOSPHORUS 6.7 mg/dL (2.5-4.9); POTASSIUM 3.8 mmol/L (3.5-5.1); TOTAL PROTEIN, SERUM 6.8 g/dL (6.0-8.3)
[2021-11-12 05:15] LABS: CREATININE 7.9 mg/dL (0.5-1.5)
[2021-11-12 05:37] LABS: LYMPHOCYTES % (MANUAL) 19 % (22-44); MONOCYTES % (MANUAL) 3 % (2-9); REACTIVE LYMPHOCYTES 1 % (0-0); SEGMENTED NEUTROPHILS % 77 % (40-70)
[2021-11-12 05:38] LABS: MAN.DIFF COMMENT-IMPRESSION MANUAL DIFFERENTIAL; PLATELET MORPHOLOGY COMMENT ADEQUATE
[2021-11-12] MEDS: INSULIN HUMULIN R 100 UNIT/ML 3ML SQ SCH ×4 (05:45→20:53)
[2021-11-12] MEDS: LEVOTHYROXINE 50 MCG TABLET PO SCH (05:45)
[2021-11-12] MEDS: ZOSYN 3.375GM +NS 50ML IV SCH ×2 (09:00→20:58)
[2021-11-12] MEDS: AMLODIPINE 5 MG TAB PO SCH (09:00)
[2021-11-12] MEDS: FAMOTIDINE 20MG VIAL IV SCH (09:00)
[2021-11-12] MEDS: Vitamin B Complex/Vit C/Folic Acid PO SCH (09:11)
[2021-11-12] MEDS: ACETAMINOPHEN 325 MG TAB PO PRN ×2 (09:12→20:57)
[2021-11-12] MEDS: SODIUM BICARBONATE 650 MG TAB PO SCH ×2 (09:13→20:57)
[2021-11-12] MEDS: NICOTINE 14 MG/ 24 HR PATCH TD SCH (09:18)
[2021-11-12] MEDS: IRON SUCROSE COMPLEX 100 MG in 0.9%NACL 50ML 50 ML IV SCH (09:34)
[2021-11-12] MEDS: EPOETIN ALFA-EPBX (ESRD) 10,000 UNIT/ML VIAL IV SCH (13:37)
[2021-11-12] MEDS: LEVOFLOXACIN 250 MG/D5W 50ML 50 ML IVPB SCH (20:58)
[2021-11-12] MEDS ORDERED: KCL 20 MEQ ERTAB PO PRN (21:00)
[2021-11-12] MEDS ORDERED: POTASSIUM CHLORIDE 10% ELIXIR 20 MEQ/15 ML UDCUP PO PRN (21:00)
[2021-11-12] MEDS ORDERED: POTASSIUM CHLORIDE 20MEQ/100ML 100 ML IV PRN ×2 (21:00)
[2021-11-12] MEDS ORDERED: LIDOCAINE HCL-MPF 1% 2ML VIAL IV PRN ×2 (21:00)
[2021-11-13] VITALS: BP 150/67
[2021-11-13] MEDS: HYDROMORPHONE 0.5 MG SYG (0.5MG/0.5ML) IVP PRN ×3 (01:15→20:26)
[2021-11-13 04:00] VITALS: BP 116/79
[2021-11-13] MEDS: LEVOTHYROXINE 50 MCG TABLET PO SCH (05:30)
[2021-11-13 06:01] LABS: BASOPHILS % (AUTO) 0.4 % (0.0-5.0); EOSINOPHILS % (AUTO) 1.2 % (0.0-8.0); HEMATOCRIT 24.8 % (42-54); LYMPHOCYTES % (AUTO) 17.6 % (21.0-51.0); MEAN CORPUSCULAR HEMOGLOBIN 29.6 pg (27.0-33.0); MEAN CORPUSCULAR VOLUME 95.4 fL (79-99); MONOCYTES % (AUTO) 12.4 % (3.0-13.0); NEUTROPHILS % (AUTO) 67.7 % (40.0-77.0); PLATELET COUNT (AUTO) 153 K/uL (130-400); RED CELL DISTRIBUTION WIDTH 14.3 % (11.0-15.5); WHITE BLOOD COUNT (AUTO) 7.4 K/uL (4.8-10.8)
[2021-11-13] MEDS: INSULIN HUMULIN R 100 UNIT/ML 3ML SQ SCH ×4 (06:27→20:44)
[2021-11-13 06:30] LABS: ALBUMIN 2.4 g/dL (3.5-5.0); BILIRUBIN,TOTAL 0.4 mg/dL (0.2-1.0); CREATININE 5.7 mg/dL (0.5-1.5); POTASSIUM 4.3 mmol/L (3.5-5.1); TOTAL PROTEIN, SERUM 7.2 g/dL (6.0-8.3)
[2021-11-13 08:03] VITALS: BP 183/71
[2021-11-13] MEDS: ZOSYN 3.375GM +NS 50ML IV SCH ×2 (08:57→20:52)
[2021-11-13] MEDS: Vitamin B Complex/Vit C/Folic Acid PO SCH (08:57)
[2021-11-13] MEDS: FAMOTIDINE 20MG VIAL IV SCH (08:57)
[2021-11-13] MEDS: NICOTINE 14 MG/ 24 HR PATCH TD SCH (08:57)
[2021-11-13] MEDS: IRON SUCROSE COMPLEX 100 MG in 0.9%NACL 50ML 50 ML IV SCH (08:58)
[2021-11-13] MEDS: SODIUM BICARBONATE 650 MG TAB PO SCH ×2 (08:59→20:52)
[2021-11-13] MEDS: AMLODIPINE 5 MG TAB PO SCH (08:59)
[2021-11-13] MEDS: ACETAMINOPHEN 325 MG TAB PO PRN ×2 (11:44→23:30)
[2021-11-13 11:45] VITALS: BP 176/55
[2021-11-13] MEDS ORDERED: VANCOMYCIN 1G/250ML KIT 250 ML IV SCH (12:30)
[2021-11-13] MEDS ORDERED: VANCOMYCIN 1G VIAL IVPB ONE (12:30)
[2021-11-13] MEDS: HEPARIN 5,000 UNIT VIAL IV SCH (15:00)
[2021-11-13 16:00] VITALS: BP 138/67
[2021-11-13 20:00] VITALS: BP 147/65
[2021-11-13] MEDS: LEVOFLOXACIN 250 MG/D5W 50ML 50 ML IVPB SCH (20:52)
[2021-11-13] MEDS: ONDANSETRON 4MG INJ IV PRN (23:00)
[2021-11-13] MEDS: ALPRAZOLAM 0.25 MG TABLET PO PRN (23:00)
[2021-11-13] MEDS: IPRATROPIUM/ALBUTEROL SULFATE 3 ML SOLUTION IH PRN (23:04)
[2021-11-14] VITALS (21 sets, daily range): BP systolic 138–188; BP diastolic 51–93
[2021-11-14] MEDS: ZOLPIDEM TARTRATE 5 MG TAB PO PRN (01:10)
[2021-11-14] MEDS: HYDROMORPHONE 0.5 MG SYG (0.5MG/0.5ML) IVP PRN ×3 (03:28→18:28)
[2021-11-14 05:21] LABS: HEMATOCRIT 23.9 % (42-54); MEAN CORPUSCULAR HEMOGLOBIN 29.2 pg (27.0-33.0); MEAN CORPUSCULAR HGB CONC 30.5 g/dL (32.0-36.0); MEAN CORPUSCULAR VOLUME 95.6 fL (79-99); PLATELET COUNT (AUTO) 276 K/uL (130-400); WHITE BLOOD COUNT (AUTO) 7.5 K/uL (4.8-10.8)
[2021-11-14 05:35] LABS: ALBUMIN 2.3 g/dL (3.5-5.0); BILIRUBIN,TOTAL 0.3 mg/dL (0.2-1.0); CREATININE 7.5 mg/dL (0.5-1.5); POTASSIUM 3.9 mmol/L (3.5-5.1); TOTAL PROTEIN, SERUM 6.9 g/dL (6.0-8.3)
[2021-11-14 05:41] LABS: LYMPHOCYTES % (MANUAL) 14 % (22-44); MAN.DIFF COMMENT-IMPRESSION MANUAL DIFFERENTIAL; MONOCYTES % (MANUAL) 14 % (2-9); PLATELET MORPHOLOGY COMMENT ADEQUATE; SEGMENTED NEUTROPHILS % 72 % (40-70)
[2021-11-14] MEDS: LEVOTHYROXINE 50 MCG TABLET PO SCH (06:02)
[2021-11-14] MEDS: INSULIN HUMULIN R 100 UNIT/ML 3ML SQ SCH ×4 (07:17→21:00)
[2021-11-14] MEDS: ACETAMINOPHEN 325 MG TAB PO PRN ×2 (07:25→21:13)
[2021-11-14] MEDS: Vitamin B Complex/Vit C/Folic Acid PO SCH (08:26)
[2021-11-14] MEDS: FAMOTIDINE 20MG VIAL IV SCH (08:26)
[2021-11-14] MEDS: SODIUM BICARBONATE 650 MG TAB PO SCH ×2 (08:26→21:12)
[2021-11-14] MEDS: ZOSYN 3.375GM +NS 50ML IV SCH ×2 (08:27→21:12)
[2021-11-14] MEDS: IRON SUCROSE COMPLEX 100 MG in 0.9%NACL 50ML 50 ML IV SCH (08:27)
[2021-11-14] MEDS: NICOTINE 14 MG/ 24 HR PATCH TD SCH (08:27)
[2021-11-14] MEDS: AMLODIPINE 5 MG TAB PO SCH (09:00)
[2021-11-14] MEDS: EPOETIN ALFA-EPBX (ESRD) 10,000 UNIT/ML VIAL IV SCH (14:57)
[2021-11-14] MEDS: HEPARIN 5,000 UNIT VIAL IV SCH (18:00)
[2021-11-14] MEDS: LEVOFLOXACIN 250 MG/D5W 50ML 50 ML IVPB SCH (21:12)
[2021-11-14] MEDS: ALPRAZOLAM 0.25 MG TABLET PO PRN (21:12)
[2021-11-15] VITALS: BP 108/72
[2021-11-15] MEDS: ZOLPIDEM TARTRATE 5 MG TAB PO PRN (00:43)
[2021-11-15] MEDS: TRAMADOL HCL 50 MG TABLET PO PRN ×2 (00:43→09:22)
[2021-11-15 04:00] VITALS: BP 176/81
[2021-11-15] MEDS: HYDRALAZINE HCL 10 MG TABLET PO PRN (04:31)
[2021-11-15 05:45] VITALS: BP 162/79
[2021-11-15] MEDS: LEVOTHYROXINE 50 MCG TABLET PO SCH (06:09)
[2021-11-15] MEDS: INSULIN HUMULIN R 100 UNIT/ML 3ML SQ SCH ×3 (06:31→16:30)
[2021-11-15 08:00] VITALS: BP 163/75
[2021-11-15] MEDS: ZOSYN 3.375GM +NS 50ML IV SCH (09:21)
[2021-11-15] MEDS: SODIUM BICARBONATE 650 MG TAB PO SCH (09:22)
[2021-11-15] MEDS: AMLODIPINE 5 MG TAB PO SCH (09:22)
[2021-11-15] MEDS: Vitamin B Complex/Vit C/Folic Acid PO SCH (09:22)
[2021-11-15] MEDS: NICOTINE 14 MG/ 24 HR PATCH TD SCH (09:23)
[2021-11-15] MEDS: FAMOTIDINE 20MG VIAL IV SCH (09:23)
[2021-11-15] MEDS: IRON SUCROSE COMPLEX 100 MG in 0.9%NACL 50ML 50 ML IV SCH (09:44)
[2021-11-15 12:00] VITALS: BP 154/62
[2021-11-15] MEDS: HEPARIN 5,000 UNIT VIAL IV SCH (15:00)
[2021-11-15 16:00] VITALS: BP 149/63
== END 2021-11-15 18:40 | DRG 853 ==
LOC: EDH 00:46 → OBSVTOIN 03:11 → EDHIP 03:11 → 4DH 11:55 → 4AH 11-09 18:08 → 3BH 11-10 19:34 → 3AH 11-14 20:52
PROVIDERS: ADMIT Internal Medicine Critical Care Medicine; ATTEND Internal Medicine Critical Care Medicine
PROC: 30233N1 Transfusion of Nonautologous Red Blood Cells into Peripheral Vein, Percutaneous Approach (ICD-10-PCS; 2021-10-28)
PROC: 02HV33Z Insertion of Infusion Device into Superior Vena Cava, Percutaneous Approach (ICD-10-PCS; 2021-10-29)
PROC: 0JH63XZ Insertion of Tunneled Vascular Access Device into Chest Subcutaneous Tissue and Fascia, Percutaneous Approach (ICD-10-PCS; 2021-11-04)
PROC: 02H633Z Insertion of Infusion Device into Right Atrium, Percutaneous Approach (ICD-10-PCS; 2021-11-04)
PROC: B5181ZA Fluoroscopy of Superior Vena Cava using Low Osmolar Contrast, Guidance (ICD-10-PCS; 2021-11-04)
PROC: B548ZZA Ultrasonography of Superior Vena Cava, Guidance (ICD-10-PCS; 2021-11-04)
PROC: 5A1D70Z Performance of Urinary Filtration, Intermittent, Less than 6 Hours Per Day (ICD-10-PCS; 2021-11-04)
PROC: 5A1D70Z Performance of Urinary Filtration, Intermittent, Less than 6 Hours Per Day (ICD-10-PCS; 2021-11-05)
PROC: 5A1D70Z Performance of Urinary Filtration, Intermittent, Less than 6 Hours Per Day (ICD-10-PCS; 2021-11-07)
PROC: 03180JF Bypass Left Brachial Artery to Lower Arm Vein with Synthetic Substitute, Open Approach (ICD-10-PCS; principal; 2021-11-08 13:30)
PROC: 5A1D70Z Performance of Urinary Filtration, Intermittent, Less than 6 Hours Per Day (ICD-10-PCS; 2021-11-10)
PROC: 5A1D70Z Performance of Urinary Filtration, Intermittent, Less than 6 Hours Per Day (ICD-10-PCS; 2021-11-12)
PROC: 5A1D70Z Performance of Urinary Filtration, Intermittent, Less than 6 Hours Per Day (ICD-10-PCS; 2021-11-14)
DX: A41.9 Sepsis, unspecified organism (principal); N18.6 End stage renal disease; I50.33 Acute on chronic diastolic (congestive) heart failure; J18.9 Pneumonia, unspecified organism; J96.01 Acute respiratory failure with hypoxia; I16.1 Hypertensive emergency; N17.9 Acute kidney failure, unspecified; N39.0 Urinary tract infection, site not specified; I13.2 Hypertensive heart and chronic kidney disease with heart failure and with stage 5 chronic kidney disease, or end stage renal disease; I31.3 Pericardial effusion (noninflammatory); E44.0 Moderate protein-calorie malnutrition; L03.114 Cellulitis of left upper limb; Z68.1 Body mass index [BMI] 19.9 or less, adult; D63.1 Anemia in chronic kidney disease; F14.129 Cocaine abuse with intoxication, unspecified; B96.89 Other specified bacterial agents as the cause of diseases classified elsewhere; B95.7 Other staphylococcus as the cause of diseases classified elsewhere; E03.9 Hypothyroidism, unspecified; R53.81 Other malaise; E87.5 Hyperkalemia; F17.210 Nicotine dependence, cigarettes, uncomplicated; B96.1 Klebsiella pneumoniae [K. pneumoniae] as the cause of diseases classified elsewhere; H10.419 Chronic giant papillary conjunctivitis, unspecified eye; Z20.822 Contact with and (suspected) exposure to COVID-19; E11.22 Type 2 diabetes mellitus with diabetic chronic kidney disease; F10.10 Alcohol abuse, uncomplicated; I34.0 Nonrheumatic mitral (valve) insufficiency; R62.7 Adult failure to thrive; Z74.01 Bed confinement status; Z91.14 Patient's other noncompliance with medication regimen; Z91.19 Patient's noncompliance with other medical treatment and regimen
CPT/HCPCS: 36415; 36430; 36558; 36600; 71045; 71250; 76770; 77001; 80048; 80051; 80053; 80061; 80305; 81001; 82040; 82270; 82550; 82565; 82728; 82803; 82948; 83036; 83540; 83550; 83605; 83615; 83690; 83735; 83874; 83880; 83935; 84100; 84145; 84439; 84443; 84481; 84484; 84520; 85014; 85018; 85025; 85027; 85378; 85610; 85730; 86701; 86704; 86706; 86850; 86900; 86901; 86923; 87040; 87071; 87077; 87088; 87186; 87205; 87340; 87390; 87635; 87804; 90935; 93005; 93306; 93356; 93970; 93971; 94640; 94664; 94760; A4606; C1750; C9803; G0378; J0456; J0610; J0690; J0696; J1170; J1642; J1644; J1650; J1756; J1815; J1940; J1956; J2001; J2020; J2405; J2543; J2704; J2710; J2920; J2997; J3010; J3370; J3475; J3490; J7030; J7050; J7070; P9016

== ENCOUNTER 2022-01-26 08:16 | Emergency (ER) | payer OTHER, MEDICARE ==
[~2022-01-26] VITALS: Ht 165.1 cm; Wt 49.9 kg
[~2022-01-26 08:16] MED LIST: AMLO-258 PO
[2022-01-26] MEDS ORDERED: ACET1TAB25 PO (08:47)
[2022-01-26] MEDS ORDERED: HYDROCODONE/ACETAMINOPHEN 5/325 MG TAB ONE (08:53)
[2022-01-26] MEDS ORDERED: HYDROCODONE/ACETAMINOPHEN 5/325 MG TAB PO ONE (09:00)
[2022-01-26 09:21] VITALS: BP 142/74
== END 2022-01-26 09:18 | disposition home or self-care (01) ==
LOC: EDH 08:16
DX: M79.601 Pain in right arm (principal); T82.49XA Other complication of vascular dialysis catheter, initial encounter; I13.2 Hypertensive heart and chronic kidney disease with heart failure and with stage 5 chronic kidney disease, or end stage renal disease; N18.6 End stage renal disease; I50.9 Heart failure, unspecified; Z99.2 Dependence on renal dialysis; Z79.899 Other long term (current) drug therapy